=== PATIENT | female | born 1975 ===

== ENCOUNTER 2016-05-17 11:23 | Emergency (ER) | payer OTHER | END 2016-05-17 17:15 | disposition home or self-care (01) | LOC: ER 11:23 | DX: N83.202 Unspecified ovarian cyst, left side (principal); N83.201 Unspecified ovarian cyst, right side; F17.210 Nicotine dependence, cigarettes, uncomplicated | CPT/HCPCS: 36415; 96374; 96375; 96376; Q9967 ==